=== PATIENT | male | born 1990 | race Hispanic/Latino ===

== ENCOUNTER 2020-07-07 09:18 | Inpatient (IN) | payer SELFPAY ==
[2020-07-07] MEDS ORDERED: Ondansetron PF 4 MG/2 ML Vial ONE (09:49)
[2020-07-07] MEDS ORDERED: Lorazepam 2 MG/ML VIAL ONE (09:50)
[2020-07-07 09:57] LABS: #Basophils 0.1 10x3/uL (0.0-0.2); #Monocytes 0.4 10x3/uL (0.0-1.1); #Neutrophils 10.6 10x3/uL (1.5-8.4); %Basophils 0.7 % (0.0-2.0); %Eosinophils 0.2 % (0.0-6.0); %Lymphocytes 10.6 % (18.0-47.0); %Monocytes 3.1 % (0.0-10.0); %Neutrophils 83.8 % (40.0-75.0); Hemoglobin 17.4 g/dL (13.5-17.5); Mean Corpuscular HGB CONC 35.2 g/dL (32.0-36.0); Mean Corpuscular Hemoglobin 31.9 pg (27.0-33.0); Mean Corpuscular Volume 90.5 fl (81.2-95.1); Mean Platelet Volume 8.7 fl (7.4-10.4); Platelet Count 241 10x3/uL (150-450); RBC Distribution Width 12.4 % (11.5-14.5); Red Blood Cell (RBC) Count 5.46 10x6/uL (4.32-5.72); White Blood Cell (WBC) Count 12.7 10x3/uL (3.5-10.5)
[2020-07-07 10:16] LABS: ALT (SGPT) 50 U/L (8-55); AST (SGOT) 61 U/L (5-34); Albumin 5.1 g/dL (3.5-5.0); Alkaline Phosphatase 72 U/L (40-110); Anion Gap 31 mmol/L (10-20); BUN (Urea Nitrogen) 10 mg/dL (8.9-20.6); Calc. Creatinine Clearance 0 mL/min (70-130); Calcium 9.6 mg/dL (7.8-10.44); Carbon Dioxide 14 mmol/L (22-29); Chloride 95 mmol/L (98-107); Globulin 3.4 g/dL (2.4-3.5); Lipase 26 U/L (8-78); Protein, Total 8.5 g/dL (6.0-8.3); Sodium 136 mmol/L (136-145)
[2020-07-07 10:28] LABS: Glucose 55 mg/dL (70-105)
[2020-07-07] MEDS ORDERED: Thiamine 100 MG TAB ONE (10:30)
[2020-07-07 11:13] LABS: Alcohol 86 mg/dL (Less than 10); Magnesium 2.2 mg/dL (1.6-2.6); Phosphorus 2.9 mg/dL (2.3-4.7)
[2020-07-07] MEDS ORDERED: Dextrose 5 % And 0.9 % NaCl 1,000 ML IV SCH (12:15)
[2020-07-07 12:20] LABS: Actual Bicarbonate (HCO3v) 20 mEq/L (22-28); Base Excess -3.8 mEq/L (-2.0 to +3.0); Calcium, Ionized (venous) 0.92 mmol/L (1.16-1.32); Chloride (VBG) 101 mmol/L (98-106); Hemoglobin (Hb) 15.7 g/dL (13.2-17.3); Notified Whom: MD; Potassium (VBG) 4.04 mmol/L (3.70-5.30); Puncture Site Other Site; RapidComm Collect By CBN; Sodium 132.6 mmol/L (133-146); pH (venous) 7.41 (7.32-7.43)
[2020-07-07] MEDS ORDERED: Bisacodyl 5 MG TAB PO PRN (13:10)
[2020-07-07] MEDS ORDERED: Ondansetron PF 4 MG/2 ML Vial IVP PRN (13:10)
[2020-07-07] MEDS ORDERED: Acetaminophen 325 MG TAB PO PRN (13:10)
[2020-07-07] MEDS ORDERED: chlordiazePOXIDE HCl 5 MG CAP PO PRN (13:13)
[2020-07-07] MEDS ORDERED: Lorazepam 2 MG/ML VIAL SLOW IVP PRN (13:16)
[2020-07-07 13:39] VITALS: BMI 18.7
[2020-07-07 13:55] LABS: Lactic Acid 2.4 mmol/L (0.5-2.2)
[2020-07-07] MEDS: Dextrose 5 % And 0.9 % NaCl 1,000 ML IV SCH (14:10)
[2020-07-07] MEDS: chlordiazePOXIDE HCl 5 MG CAP PO SCH ×2 (16:40→20:59)
[2020-07-07] MEDS: Pantoprazole 40 MG VIAL IVP SCH (20:59)
[2020-07-07] MEDS ORDERED: Famotidine/PF 20 mg/2ml Vial SLOW IVP SCH (21:00)
[2020-07-08] MEDS: Dextrose 5 % And 0.9 % NaCl 1,000 ML IV SCH ×2 (00:02→13:48)
[2020-07-08 05:08] LABS: #Eosinphils 0.2 10x3/uL (0.0-0.5); #Monocytes 0.8 10x3/uL (0.0-1.1); #Neutrophils 5.8 10x3/uL (1.5-8.4); %Basophils 0.5 % (0.0-2.0); %Lymphocytes 16.8 % (18.0-47.0); %Monocytes 9.5 % (0.0-10.0); %Neutrophils 70.6 % (40.0-75.0); Hemoglobin 14.4 g/dL (13.5-17.5); Mean Corpuscular HGB CONC 35.6 g/dL (32.0-36.0); Mean Corpuscular Hemoglobin 31.9 pg (27.0-33.0); Mean Corpuscular Volume 89.6 fl (81.2-95.1); Platelet Count 206 10x3/uL (150-450); RBC Distribution Width 12.4 % (11.5-14.5); Red Blood Cell (RBC) Count 4.51 10x6/uL (4.32-5.72); White Blood Cell (WBC) Count 8.1 10x3/uL (3.5-10.5)
[2020-07-08 05:27] LABS: Anion Gap 14 mmol/L (10-20); BUN (Urea Nitrogen) 7 mg/dL (8.9-20.6); Calc. Creatinine Clearance 127 mL/min (70-130); Calcium 8.2 mg/dL (7.8-10.44); Carbon Dioxide 22 mmol/L (22-29); Chloride 107 mmol/L (98-107); Glucose 82 mg/dL (70-105); Potassium 3.7 mmol/L (3.5-5.1); Sodium 139 mmol/L (136-145)
[2020-07-08] MEDS ORDERED: Multivitamins, Adult 10 ML, Folic Acid 1 MG, Thiamine HCl 100 MG in Dextrose 5 %-0.45 %... IV SCH (09:00)
[2020-07-08] MEDS ORDERED: Enoxaparin Sodium 40 MG/0.4 ML SYRINGE SC SCH (09:00)
[2020-07-08] MEDS: Pantoprazole 40 MG VIAL IVP SCH (09:07)
[2020-07-08] MEDS: chlordiazePOXIDE HCl 5 MG CAP PO SCH (09:07)
[2020-07-08 12:08] VITALS: BP 135/80; TEMP 97.6
[2020-07-08 13:56] LABS: SARS-CoV-2 PCR by NAA Not Detected (NotDetected)
== END 2020-07-08 17:18 | disposition home or self-care (01) | DRG 642 ==
LOC: CSHERS 09:18 → CSHTELE 12:21
PROVIDERS: ADMIT Hospitalist; ATTEND Hospitalist
DX: E88.89 Other specified metabolic disorders (principal); E87.2 Acidosis; F10.239 Alcohol dependence with withdrawal, unspecified; R11.2 Nausea with vomiting, unspecified; K70.0 Alcoholic fatty liver; F41.9 Anxiety disorder, unspecified; F32.9 Major depressive disorder, single episode, unspecified; F43.10 Post-traumatic stress disorder, unspecified; F17.210 Nicotine dependence, cigarettes, uncomplicated; Z20.822 Contact with and (suspected) exposure to COVID-19
CPT/HCPCS: 36415; 36416; 74177; 80048; 80053; 80307; 82010; 82330; 82803; 82805; 83605; 83690; 83735; 84100; 84484; 85025; 87635; 93005; 96374; 96375; C9113; J1650; J2060; J2405; J3411; J7042; U0003; U0005